=== PATIENT | male | born 1935 | race Caucasian/White ===

== ENCOUNTER 2016-07-11 01:58 | Emergency (ER) | payer MEDICARE ==
[~2016-07-11] VITALS: Ht 177.8 cm; Wt 0.5 kg
[2016-07-11 01:59] VITALS: BP 174/130; PULSE 66; RESP 18; TEMP 97.8; O2SAT 96
--- NOTE | 2016-07-11 01:59 | NUR ---
Patient to ER bed 8 to gown for evaluation. Side rails up.
--- NOTE | 2016-07-11 02:00 | NUR ---
PT IS AOX4, C/O RIGHT SHOULDER PAIN SECONDARY TO FALL. (-)KO PAIN SCLE 6/10.
--- NOTE | 2016-07-11 02:35 | NUR ---
ER Dr.DE ONEIL at bedside examining patient.
[2016-07-11] MEDS ORDERED: IBUPROFEN 600 MG TABLET PO ONE (02:45)
[2016-07-11 03:45] VITALS: BP 152/91; PULSE 66; RESP 18; TEMP 97.8; O2SAT 96
--- NOTE | 2016-07-11 03:45 | NUR ---
Patient given written and verbal discharge instructions and verbalizes understanding. ER MD discussed with patient the results and treatment provided. Patient in stable condition. ID arm band removed. Rx of IBUPROFEN 600 MG given. Patient educated on pain management and to follow up with PMD. Pain Scale 0/10. Opportunity for questions provided and answered.
== END 2016-07-11 03:45 | disposition home or self-care (01) ==
LOC: SED 01:58
DX: S40.011A Contusion of right shoulder, initial encounter (principal); W19.XXXA Unspecified fall, initial encounter; Y93.89 Activity, other specified; Y92.89 Other specified places as the place of occurrence of the external cause; Y99.9 Unspecified external cause status
CPT/HCPCS: 99284

== ENCOUNTER 2016-10-26 13:58 | Emergency (ER) | payer MEDICARE ==
[~2016-10-26] VITALS: Ht 167.6 cm; Wt 63.5 kg
[2016-10-26 14:00] VITALS: BP 134/84; PULSE 86; RESP 16; TEMP 97.6; O2SAT 97
[2016-10-26 14:59] LABS: BASOPHILS % (AUTO) 0.3 % (0.0-2.0); EOSINOPHILS % (AUTO) 0.5 % (0.0-4.0); HEMOGLOBIN 13.3 g/dL (14.0-18.0); LYMPHOCYTES # (AUTO) 0.9 K/uL (1.0-5.5); MEAN CORPUSCULAR HEMOGLOBIN 33 pg (27-31); MEAN CORPUSCULAR HGB CONC 33 % (32-36); MEAN CORPUSCULAR VOLUME 100 fL (79.0-98.0); MONOCYTES # (AUTO) 0.9 K/uL (0.0-1.0); MONOCYTES % (AUTO) 11.3 % (1.7-9.3); NEUTROPHILS # (AUTO) 6.1 K/uL (1.8-7.7); NEUTROPHILS % (AUTO) 76.9 % (40.0-70.0); PLATELET COUNT (AUTO) 231 K/uL (130-430); RED BLOOD CELL COUNT(AUTO) 4.02 MIL/uL (4.2-6.2); RED CELL DISTRIBUTION WIDTH 12.5 % (9.0-15.0); WHITE BLOOD COUNT (AUTO) 7.9 K/uL (4.8-10.8)
[2016-10-26 15:02] LABS: ANION GAP 10 (5-15); CALCIUM 9.2 mg/dL (8.4-11.0); CHLORIDE 93 mmol/L (98-107); CREATININE 1.55 mg/dL (0.55-1.30); GLUCOSE 126 mg/dL (70-99); POTASSIUM 3.8 mmol/L (3.5-5.1); SODIUM SERUM 130 mmol/L (136-145); UREA NITROGEN, BLOOD 20 mg/dL (8-21)
[2016-10-26 15:05] LABS: PROTHROMBIN TIME 10.7 SECS (9.5-12.5)
[2016-10-26 15:16] LABS: ALANINE AMINOTRANSFERASE 20 U/L (12-78); ALBUMIN 3.6 g/dL (3.4-4.8); ASPARTATE AMINOTRANSFERASE 29 U/L (10-37); LIPASE 159 U/L (73-393); THYROID STIMULATING HORMONE 0.32 uIu/mL (0.36-3.74); TOTAL BILIRUBIN 0.9 mg/dL (0.0-1.0); TOTAL PROTEIN, SERUM 7.5 g/dL (6.4-8.3)
[2016-10-26 15:34] LABS: BILIRUBIN,URINE NEGATIVE (NEGATIVE); BLOOD, URINE NEGATIVE (NEGATIVE); CLARITY/URINE CLEAR (CLEAR); COLOR,URINE YELLOW (YELLOW); GLUCOSE,URINE NEGATIVE (NEGATIVE); KETONES,URINE TRACE (NEGATIVE); LEUKOCYTE ESTERASE ,URINE NEGATIVE (NEGATIVE); NITRITE, URINE NEGATIVE (NEGATIVE); PROTEIN URINE TRACE (NEGATIVE); UROBILINOGEN,URINE 0.2 (0.2-1.0)
[2016-10-26] MEDS ORDERED: VANCOMYCIN HCL 1,000 MG in NS 250 ML IV ONE (15:45)
[2016-10-26] MEDS ORDERED: PIPERACILLIN/TAZO 3.375 GM in NS 50 ML IV ONE (15:45)
[2016-10-26] MEDS ORDERED: ENOXAPARIN SODIUM 80 MG/0.8 ML SYRINGE SUBCUT ONE (16:00)
[2016-10-26] MEDS ORDERED: VANCOMYCIN HCL 1000 MG/VIAL IV ONE (16:02)
[2016-10-26] MEDS ORDERED: PIPERACILLIN/TAZOBACTAM 3.375 GM/VIAL (ZOSYN) IV ONE (16:02)
[2016-10-26 18:20] VITALS: BP 132/83; PULSE 84; RESP 22; TEMP 97.4; O2SAT 98
== END 2016-10-26 18:20 | disposition short-term general hospital (02) ==
LOC: SED 13:58
DX: J18.9 Pneumonia, unspecified organism (principal); Y95 Nosocomial condition; R79.1 Abnormal coagulation profile; I10 Essential (primary) hypertension; I48.91 Unspecified atrial fibrillation
CPT/HCPCS: 36415; 71010; 80053; 81003; 83605; 83690; 83880; 84443; 84484; 85025; 85379; 85610; 87040; 93005; 96365; 96368; 96372; 99285; J1650; J1956; J2543; J3370

== ENCOUNTER 2016-10-30 13:43 | Emergency (ER) | payer MEDICARE ==
[~2016-10-30] VITALS: Ht 175.3 cm; Wt 72.6 kg
[2016-10-30 13:45] VITALS: BP_SYST 140
[2016-10-30] MEDS ORDERED: DIPHENHYDRAMINE INJ 50 MG/ML VIAL IVP ONE (14:00)
[2016-10-30] MEDS ORDERED: MORPHINE 2 MG/ML INJ. SYRINGE IVP ONE (14:00)
[2016-10-30 15:10] LABS: BASOPHILS % (AUTO) 0.3 % (0.0-2.0); EOSINOPHILS # (AUTO) 0.1 K/uL (0.0-0.4); EOSINOPHILS % (AUTO) 0.5 % (0.0-4.0); HEMATOCRIT 33.8 % (36-54); HEMOGLOBIN 11.3 g/dL (14.0-18.0); LYMPHOCYTES # (AUTO) 0.7 K/uL (1.0-5.5); LYMPHOCYTES % (AUTO) 7.2 % (20.5-51.5); MEAN CORPUSCULAR HEMOGLOBIN 33 pg (27-31); MEAN CORPUSCULAR HGB CONC 34 % (32-36); MEAN CORPUSCULAR VOLUME 100 fL (79.0-98.0); MONOCYTES % (AUTO) 9.9 % (1.7-9.3); NEUTROPHILS # (AUTO) 8.4 K/uL (1.8-7.7); NEUTROPHILS % (AUTO) 82.1 % (40.0-70.0); PLATELET COUNT (AUTO) 240 K/uL (130-430); RED BLOOD CELL COUNT(AUTO) 3.39 MIL/uL (4.2-6.2); RED CELL DISTRIBUTION WIDTH 13.1 % (9.0-15.0); WHITE BLOOD COUNT (AUTO) 10.2 K/uL (4.8-10.8)
[2016-10-30 15:13] LABS: ANION GAP 9 (5-15); CALCIUM 8.8 mg/dL (8.4-11.0); CHLORIDE 100 mmol/L (98-107); CREATININE 1.46 mg/dL (0.55-1.30); GLUCOSE 109 mg/dL (70-99); SODIUM SERUM 131 mmol/L (136-145); UREA NITROGEN, BLOOD 22 mg/dL (8-21)
[2016-10-30] MEDS ORDERED: HYDROmorphone 1 MG INJ. 1 MG/ML AMPUL IVP ONE ×2 (15:15→17:30)
[2016-10-30 15:18] LABS: ALANINE AMINOTRANSFERASE 30 U/L (12-78); ALBUMIN 3.3 g/dL (3.4-4.8); ASPARTATE AMINOTRANSFERASE 29 U/L (10-37); TOTAL BILIRUBIN 0.6 mg/dL (0.0-1.0); TOTAL PROTEIN, SERUM 6.6 g/dL (6.4-8.3)
[2016-10-30 18:55] VITALS: BP_SYST 102
== END 2016-10-30 18:55 | disposition short-term general hospital (02) ==
LOC: SED 13:43
DX: S72.141A Displaced intertrochanteric fracture of right femur, initial encounter for closed fracture (principal); I10 Essential (primary) hypertension; I48.91 Unspecified atrial fibrillation; Z88.1 Allergy status to other antibiotic agents; W01.0XXA Fall on same level from slipping, tripping and stumbling without subsequent striking against object, initial encounter; Y93.89 Activity, other specified; Y92.89 Other specified places as the place of occurrence of the external cause; Y99.8 Other external cause status
CPT/HCPCS: 36415; 71010; 73510; 80053; 83880; 84484; 85025; 85610; 93005; 96374; 96375; 96376; 99285; J1170; J1200; J2270; J7030; 73502

== ENCOUNTER 2018-01-12 11:38 | Emergency (ER) | payer MEDICARE ==
[~2018-01-12] VITALS: Ht 162.6 cm; Wt 63.5 kg
[2018-01-12 11:46] VITALS: BP_SYST 155
[2018-01-12] MEDS ORDERED: NACL 0.9% 1,000 ML IV ONE (12:00)
[2018-01-12 12:35] LABS: BASOPHILS % (AUTO) 0.4 % (0.0-2.0); EOSINOPHILS % (AUTO) 0.7 % (0.0-4.0); HEMATOCRIT 34.5 % (36-54); HEMOGLOBIN 11.8 g/dL (14.0-18.0); LYMPHOCYTES # (AUTO) 1.3 K/uL (1.0-5.5); LYMPHOCYTES % (AUTO) 20.5 % (20.5-51.5); MEAN CORPUSCULAR HEMOGLOBIN 35 pg (27-31); MEAN CORPUSCULAR HGB CONC 34 % (32-36); MEAN CORPUSCULAR VOLUME 102 fL (79.0-98.0); MONOCYTES # (AUTO) 0.5 K/uL (0.0-1.0); MONOCYTES % (AUTO) 7.9 % (1.7-9.3); NEUTROPHILS # (AUTO) 4.5 K/uL (1.8-7.7); NEUTROPHILS % (AUTO) 70.5 % (40.0-70.0); PLATELET COUNT (AUTO) 221 K/uL (130-430); RED BLOOD CELL COUNT(AUTO) 3.39 MIL/uL (4.2-6.2); RED CELL DISTRIBUTION WIDTH 12.9 % (9.0-15.0); WHITE BLOOD COUNT (AUTO) 6.3 K/uL (4.8-10.8)
[2018-01-12 12:38] LABS: ANION GAP 8 (5-15); CALCIUM 8.5 mg/dL (8.4-11.0); CHLORIDE 109 mmol/L (98-107); GLUCOSE 156 mg/dL (70-99); POTASSIUM 3.7 mmol/L (3.5-5.1); SODIUM SERUM 144 mmol/L (136-145); UREA NITROGEN, BLOOD 18 mg/dL (8-21)
[2018-01-12 12:47] LABS: ALANINE AMINOTRANSFERASE 17 U/L (12-78); ALBUMIN 2.8 g/dL (3.4-4.8); ASPARTATE AMINOTRANSFERASE 19 U/L (10-37); TOTAL BILIRUBIN 0.4 mg/dL (0.0-1.0)
[2018-01-12] MEDS ORDERED: OMEP20CA10 PO (12:48)
[2018-01-12] MEDS ORDERED: PRAV20TA PO (12:48)
[2018-01-12] MEDS ORDERED: ASA81 PO (12:48)
[2018-01-12] MEDS ORDERED: LACT10SO6 PO (12:48)
[2018-01-12] MEDS ORDERED: ISOS30TA6 PO (12:48)
[2018-01-12] MEDS ORDERED: FINA5TAB3 PO (12:48)
[2018-01-12] MEDS ORDERED: TAMS-11 PO (12:48)
[2018-01-12] MEDS ORDERED: ACET325C4 PO (12:50)
[2018-01-12 13:49] LABS: INR 1.1 (0.80-1.20); PROTHROMBIN TIME 11.4 SECS (9.5-12.5)
[2018-01-12] MEDS ORDERED: MORPHINE 4 MG/ML INJ. SYRINGE IVP ONE (14:00)
[2018-01-12 16:06] VITALS: BP_SYST 147
== END 2018-01-12 16:06 | disposition short-term general hospital (02) ==
LOC: SED 11:38
DX: K92.2 Gastrointestinal hemorrhage, unspecified (principal); R55 Syncope and collapse; N40.0 Benign prostatic hyperplasia without lower urinary tract symptoms; K83.8 Other specified diseases of biliary tract; D64.9 Anemia, unspecified; I10 Essential (primary) hypertension; I48.91 Unspecified atrial fibrillation; E78.00 Pure hypercholesterolemia, unspecified; Z88.8 Allergy status to other drugs, medicaments and biological substances; Z79.899 Other long term (current) drug therapy
CPT/HCPCS: 36415; 74176; 80053; 83605; 84484; 85025; 85610; 85730; 86886; 86900; 86901; 87040; 93005; 96361; 96374; 99285; J2270; J7030